=== PATIENT | male | born 1960 | race Caucasian/White ===

== ENCOUNTER → 2021-04-01 | Outpatient (CLI) | payer BC ==
[2021-04-01 12:01] LABS: HEMOGLOBIN 10.5 gm/dl (14.0-17.5); RED BLOOD COUNT 3.42 M/UL (4.20-5.50); WHITE BLOOD COUNT 1.7 K/UL (4.5-11.0)
[2021-04-01 12:46] LABS: BUN/CREATININE RATIO 14 (0-10)
[2021-04-02 08:14] LABS: HCV AB <0.1 (0.0-0.9)
[2021-04-02 10:14] LABS: HBSAG SCREEN Negative (Negative); HEP B CORE AB, TOT Negative (Negative)
[2021-04-02 11:15] LABS: COMPLEMENT C3, SERUM 149 mg/dL (82-167); COMPLEMENT C4, SERUM 24 mg/dL (12-38); RHEUMATOID ARTHRITIS FACTOR <10.0 IU/mL (0.0-13.9); TRANSFERRIN 270 mg/dL (177-329)
[2021-04-03 00:09] LABS: CCP ANTIBODIES IGG/IGA 26 units (0-19)
[2021-04-04 07:10] LABS: QUANTIFERON MITOGEN VALUE >10.00 IU/mL (.); QUANTIFERON NIL VALUE 0.03 IU/mL (.); QUANTIFERON TB1 AG VALUE 0.01 IU/mL (.); QUANTIFERON-TB GOLD PLUS Negative (Negative)
== END ==
LOC: LAB 10:01
PROVIDERS: Nurse Practitioner Family
DX: M25.542 Pain in joints of left hand (principal); M25.541 Pain in joints of right hand; M19.042 Primary osteoarthritis, left hand; M19.041 Primary osteoarthritis, right hand; R76.8 Other specified abnormal immunological findings in serum; M79.10 Myalgia, unspecified site; D64.9 Anemia, unspecified; Z11.59 Encounter for screening for other viral diseases; D89.9 Disorder involving the immune mechanism, unspecified
CPT/HCPCS: 36415; 73130; 80053; 81001; 82550; 82570; 82607; 82728; 82746; 83520; 83540; 83550; 84156; 84466; 85025; 85045; 85652; 86140; 86160; 86162; 86200; 86431; 86704; 86803; 87340

== ENCOUNTER → 2022-03-04 | Outpatient (CLI) | payer OTHER | LOC: LAB 12:46 | DX: D64.9 Anemia, unspecified (principal) | CPT/HCPCS: 36415 ==